=== PATIENT | female | born 1950 | race Caucasian/White ===

== ENCOUNTER 2016-10-01 12:05 | Inpatient (IN) | payer OTHER ==
[~2016-10-01] VITALS: Ht 157.5 cm; Wt 68.0 kg
[2016-10-01 12:09] VITALS: BP_SYST 137
[2016-10-01] MEDS ORDERED: NACL 0.9% 1,000 ML IV SCH (12:35)
[2016-10-01 12:45] LABS: BILIRUBIN,URINE NEGATIVE (NEGATIVE); BLOOD, URINE NEGATIVE (NEGATIVE); CLARITY/URINE CLEAR (CLEAR); COLOR,URINE YELLOW (YELLOW); GLUCOSE,URINE NEGATIVE (NEGATIVE); KETONES,URINE NEGATIVE (NEGATIVE); LEUKOCYTE ESTERASE ,URINE 1+ (NEGATIVE); NITRITE, URINE NEGATIVE (NEGATIVE); PH,URINE 6.5 (5.0-8.0); PROTEIN URINE NEGATIVE (NEGATIVE)
[2016-10-01 13:06] LABS: BACTERIA,URINE FEW /HPF (None Seen); MUCUS,URINE None Seen /LPF (None Seen); RBC,URINE 0-3 /HPF (0-3); WBC,URINE 0-3 /HPF (0-3)
[2016-10-01 13:07] LABS: CALCIUM 8.8 mg/dL (8.4-11.0); CREATININE 0.79 mg/dL (0.55-1.30); POTASSIUM 4.2 mmol/L (3.5-5.1)
[2016-10-01 13:12] LABS: ALBUMIN 3.3 g/dL (3.4-4.8); TOTAL BILIRUBIN 0.5 mg/dL (0.0-1.0); TOTAL PROTEIN, SERUM 6.8 g/dL (6.4-8.3)
[2016-10-01 13:16] LABS: BASOPHILS % (AUTO) 0.7 % (0.0-2.0); EOSINOPHILS # (AUTO) 0.3 K/uL (0.0-0.4); EOSINOPHILS % (AUTO) 4.9 % (0.0-4.0); HEMATOCRIT 42.9 % (36-48); HEMOGLOBIN 14.5 g/dL (12.0-16.0); LYMPHOCYTES # (AUTO) 1.3 K/uL (1.0-5.5); MEAN CORPUSCULAR HEMOGLOBIN 33 pg (27-31); MEAN CORPUSCULAR HGB CONC 34 % (32-36); MEAN CORPUSCULAR VOLUME 97 fL (79.0-98.0); MONOCYTES # (AUTO) 0.5 K/uL (0.0-1.0); MONOCYTES % (AUTO) 9.2 % (1.7-9.3); NEUTROPHILS # (AUTO) 3.1 K/uL (1.8-7.7); NEUTROPHILS % (AUTO) 59.2 % (40.0-70.0); PLATELET COUNT (AUTO) 113 K/uL (130-430); RED BLOOD CELL COUNT(AUTO) 4.42 MIL/uL (4.2-6.2); WHITE BLOOD COUNT (AUTO) 5.2 K/uL (4.8-10.8)
[2016-10-01] MEDS ORDERED: FLEETMO RC (13:19)
[2016-10-01] MEDS ORDERED: DOCU250C71 PO (13:19)
[2016-10-01] MEDS ORDERED: ASA81 PO (13:19)
[2016-10-01] MEDS ORDERED: DULR10 RC (13:19)
[2016-10-01] MEDS ORDERED: LAMO200T2 PO (13:19)
[2016-10-01] MEDS ORDERED: ACET325T53 PO (13:19)
[2016-10-01] MEDS ORDERED: CARV3.1246 PO (13:19)
[2016-10-01] MEDS ORDERED: CEL20 PO (13:19)
[2016-10-01] MEDS ORDERED: BUSP10TA3 PO (13:19)
[2016-10-01] MEDS ORDERED: LORA-259 PO (13:19)
[2016-10-01] MEDS ORDERED: BENA1TAB17 PO (13:19)
[2016-10-01 13:48] LABS: ABG TOTAL HEMOGLOBIN 15.1 G/dL (12.0-18.0); BLOOD GAS BASE EXCESS 3.8 mmol/L (-3.0-3.0); BLOOD GAS COHb% 6.3 % (0.5-1.5)
[2016-10-01] MEDS ORDERED: IPRATROPIUM/ALBUTEROL SULFATE 3 ML AMPUL.NEB INH ONE (14:00)
[2016-10-01] MEDS ORDERED: ACETAMINOPHEN 325 MG TABLET PO PRN (14:15)
[2016-10-01] MEDS ORDERED: POTASSIUM CHLORIDE 20 MEQ TAB.PRT.SR PO PRN (14:15)
[2016-10-01] MEDS ORDERED: BISACODYL 10 MG/SUPPOSITORY RC PRN (14:15)
[2016-10-01] MEDS ORDERED: SIMETHICONE 80 MG TAB.CHEW PO PRN (14:15)
[2016-10-01] MEDS ORDERED: MORPHINE 2 MG/ML INJ. SYRINGE IVP PRN (14:15)
[2016-10-01] MEDS ORDERED: HYDROcodone/ACETAMIN 10-325 MG TAB PO PRN ×2 (14:15→17:00)
[2016-10-01] MEDS ORDERED: IPRATROPIUM/ALBUTEROL SULFATE 3 ML AMPUL.NEB INH SCH (14:15)
[2016-10-01] MEDS ORDERED: ZOLPIDEM TARTRATE 5 MG TABLET PO PRN (14:15)
[2016-10-01] MEDS ORDERED: MINERAL OIL 133 ML ENEMA RC PRN (14:30)
[2016-10-01 14:38] VITALS: BP_SYST 137
[2016-10-01 15:50] VITALS: BP_SYST 137
[2016-10-01] MEDS: busPIRone HCL 5 MG TABLET PO SCH ×2 (15:55→21:04)
[2016-10-01] MEDS ORDERED: LEVOFLOXACIN 500 MG/D5W 100 ML IV ONE (16:15)
[2016-10-01] MEDS: ENOXAPARIN SODIUM 40 MG/0.4 ML SYRINGE SUBCUT ONE ×2 (16:15→17:29)
[2016-10-01 16:29] VITALS: BP_SYST 134
[2016-10-01] MEDS: NACL 0.9% 1,000 ML IV SCH (17:06)
[2016-10-01 17:07] LABS: FREE T4 (FREE THYROXINE) 0.7 ng/dL (0.6-1.6); PHOSPHORUS 3.6 mg/dL (2.7-4.5); THYROID STIMULATING HORMONE 0.96 uIu/mL (0.34-4.82)
[2016-10-01 20:11] VITALS: BP_SYST 124
[2016-10-01] MEDS: BUDESONIDE 0.5 MG/2 ML AMPUL.NEB INH SCH (20:19)
[2016-10-01] MEDS: IPRATROPIUM/ALBUTEROL SULFATE 3 ML AMPUL.NEB INH SCH ×3 (20:19→23:21)
[2016-10-01] MEDS: SACCHAROMYCES BOULARDII 250 MG CAPSULE (FLORASTOR) PO SCH (21:00)
[2016-10-01] MEDS: methylPREDNISolone SOD SUCC/PF 62.5 MG/ML VIAL IVP SCH (21:03)
[2016-10-01] MEDS: QUEtiapine FUMARATE 100 MG TABLET PO SCH (21:04)
[2016-10-01] MEDS: LamoTRIgine 100 MG TABLET PO SCH (21:04)
[2016-10-01] MEDS: DOCUSATE SODIUM 100 MG CAPSULE PO SCH (21:04)
[2016-10-01] MEDS: CARVEDILOL 3.125 MG TABLET (COREG) PO SCH (21:05)
[2016-10-01] MEDS: LORazepam 1 MG TABLET PO SCH (21:06)
[2016-10-02 00:41] VITALS: BP_SYST 122
[2016-10-02] MEDS: HYDROcodone/ACETAMIN 10-325 MG TAB PO PRN ×3 (03:09→21:54)
[2016-10-02] MEDS: IPRATROPIUM/ALBUTEROL SULFATE 3 ML AMPUL.NEB INH SCH ×6 (03:21→23:48)
[2016-10-02] MEDS: NACL 0.9% 1,000 ML IV SCH (06:02)
[2016-10-02] MEDS: methylPREDNISolone SOD SUCC/PF 62.5 MG/ML VIAL IVP SCH ×3 (06:03→21:52)
[2016-10-02] MEDS: LEVOTHYROXINE SODIUM 0.05 MG TABLET PO SCH (06:04)
[2016-10-02 06:59] LABS: CHOLESTEROL 141 mg/dL (<200); HDL CHOLESTEROL 79 mg/dL (>55); LDL CHOLESTEROL 54 mg/dL (<100); TRIGLYCERIDES 40 mg/dL (30-150)
[2016-10-02] MEDS: BUDESONIDE 0.5 MG/2 ML AMPUL.NEB INH SCH ×2 (07:06→20:11)
[2016-10-02 07:33] LABS: HEMOGLOBIN A1C 5.2 % (4.8-5.6)
[2016-10-02 08:19] VITALS: BP_SYST 151
[2016-10-02] MEDS ORDERED: HCTZ PO SCH (09:00)
[2016-10-02] MEDS: SACCHAROMYCES BOULARDII 250 MG CAPSULE (FLORASTOR) PO SCH (09:00)
[2016-10-02] MEDS ORDERED: BENAZEPRIL PO SCH (09:00)
[2016-10-02] MEDS: ENOXAPARIN SODIUM 40 MG/0.4 ML SYRINGE SUBCUT SCH (09:00)
[2016-10-02] MEDS: busPIRone HCL 5 MG TABLET PO SCH ×3 (09:34→21:52)
[2016-10-02] MEDS: HYDROCHLOROTHIAZIDE 12.5 MG CAPSULE (HCTZ) PO SCH (09:35)
[2016-10-02] MEDS: ASPIRIN 81 MG TAB.CHEW PO SCH (09:35)
[2016-10-02] MEDS: CITALOPRAM HYDROBROMIDE 20 MG TABLET PO SCH (09:35)
[2016-10-02] MEDS: CARVEDILOL 3.125 MG TABLET (COREG) PO SCH ×2 (09:36→21:53)
[2016-10-02] MEDS: BENAZEPRIL HCL 10 MG TABLET (LOTENSIN) PO SCH (09:38)
[2016-10-02] MEDS: LORazepam 1 MG TABLET PO SCH ×2 (09:53→21:52)
[2016-10-02] MEDS: LamoTRIgine 100 MG TABLET PO SCH ×2 (09:53→21:52)
[2016-10-02] MEDS: DOCUSATE SODIUM 100 MG CAPSULE PO SCH ×2 (09:53→21:52)
[2016-10-02] MEDS: LEVOFLOXACIN 500 MG/D5W 100 ML IV SCH (09:54)
[2016-10-02 12:22] VITALS: BP_SYST 145
[2016-10-02] MEDS: LORazepam 2 MG/ML VIAL IVP PRN (13:21)
[2016-10-02 16:12] VITALS: BP_SYST 140
[2016-10-02 17:02] LABS: T4 (THYROXINE) 6.2 ug/dL (4.5-12.0)
[2016-10-02 20:00] VITALS: BP_SYST 151
[2016-10-02] MEDS: QUEtiapine FUMARATE 100 MG TABLET PO SCH (21:52)
[2016-10-02] MEDS: LACTOBACILLUS RHAMNOSUS GG 1 CAP CAPSULE PO SCH (21:53)
[2016-10-02 23:25] VITALS: BP_SYST 136
[2016-10-03] MEDS: NACL 0.9% 1,000 ML IV SCH (00:20)
[2016-10-03] MEDS: IPRATROPIUM/ALBUTEROL SULFATE 3 ML AMPUL.NEB INH SCH ×6 (02:08→22:15)
[2016-10-03] MEDS: HYDROcodone/ACETAMIN 10-325 MG TAB PO PRN ×3 (03:42→13:34)
[2016-10-03] MEDS: LORazepam 2 MG/ML VIAL IVP PRN (03:42)
[2016-10-03 04:08] VITALS: BP_SYST 125
[2016-10-03] MEDS: methylPREDNISolone SOD SUCC/PF 62.5 MG/ML VIAL IVP SCH ×3 (06:08→22:14)
[2016-10-03] MEDS: LEVOTHYROXINE SODIUM 0.05 MG TABLET PO SCH (06:08)
[2016-10-03 06:32] LABS: MONOCYTES # (AUTO) 0.2 K/uL (0.0-1.0)
[2016-10-03 06:51] LABS: CALCIUM 8.2 mg/dL (8.4-11.0); CREATININE 0.76 mg/dL (0.55-1.30); POTASSIUM 3.3 mmol/L (3.5-5.1)
[2016-10-03 06:52] LABS: PHOSPHORUS 3.2 mg/dL (2.7-4.5)
[2016-10-03 06:55] LABS: EOSINOPHILS % (AUTO) 0.1 % (0.0-4.0); HEMATOCRIT 38.5 % (36-48); LYMPHOCYTES # (AUTO) 0.5 K/uL (1.0-5.5); MEAN CORPUSCULAR HEMOGLOBIN 33 pg (27-31); MEAN CORPUSCULAR HGB CONC 34 % (32-36); MEAN CORPUSCULAR VOLUME 98 fL (79.0-98.0); MONOCYTES % (AUTO) 3.5 % (1.7-9.3); NEUTROPHILS # (AUTO) 6.2 K/uL (1.8-7.7); NEUTROPHILS % (AUTO) 89.4 % (40.0-70.0); PLATELET COUNT (AUTO) 78 K/uL (130-430); RED BLOOD CELL COUNT(AUTO) 3.93 MIL/uL (4.2-6.2); RED CELL DISTRIBUTION WIDTH 12.8 % (9.0-15.0); WHITE BLOOD COUNT (AUTO) 6.9 K/uL (4.8-10.8)
[2016-10-03] MEDS: BUDESONIDE 0.5 MG/2 ML AMPUL.NEB INH SCH ×2 (07:48→19:59)
[2016-10-03 07:53] VITALS: BP_SYST 129
[2016-10-03] MEDS: ASPIRIN 81 MG TAB.CHEW PO SCH (09:00)
[2016-10-03] MEDS: LamoTRIgine 100 MG TABLET PO SCH ×2 (09:20→20:36)
[2016-10-03] MEDS: busPIRone HCL 5 MG TABLET PO SCH ×3 (09:20→20:36)
[2016-10-03] MEDS: DOCUSATE SODIUM 100 MG CAPSULE PO SCH ×2 (09:21→20:35)
[2016-10-03] MEDS: LACTOBACILLUS RHAMNOSUS GG 1 CAP CAPSULE PO SCH ×2 (09:21→20:36)
[2016-10-03] MEDS: CITALOPRAM HYDROBROMIDE 20 MG TABLET PO SCH (09:22)
[2016-10-03] MEDS: LORazepam 1 MG TABLET PO SCH ×2 (09:22→20:36)
[2016-10-03] MEDS: HYDROCHLOROTHIAZIDE 12.5 MG CAPSULE (HCTZ) PO SCH (09:23)
[2016-10-03] MEDS: CARVEDILOL 3.125 MG TABLET (COREG) PO SCH ×2 (09:23→20:37)
[2016-10-03] MEDS: BENAZEPRIL HCL 10 MG TABLET (LOTENSIN) PO SCH (09:23)
[2016-10-03] MEDS: ENOXAPARIN SODIUM 40 MG/0.4 ML SYRINGE SUBCUT SCH (09:23)
[2016-10-03] MEDS: LEVOFLOXACIN 500 MG/D5W 100 ML IV SCH (09:24)
[2016-10-03 11:04] LABS: BLOOD GAS PH 7.429 (7.350-7.450)
[2016-10-03 11:05] LABS: BLOOD GAS BASE EXCESS 0.6 mmol/L (-3.0-3.0)
[2016-10-03 11:06] LABS: ABG TOTAL HEMOGLOBIN 14.1 G/dL (12.0-18.0); BLOOD GAS COHb% 0.6 % (0.5-1.5); BLOOD GAS HHB 12.1 % (0.0-6.0); BLOOD O2Hb% 87.2 % (94.0-97.0)
[2016-10-03 12:40] VITALS: BP_SYST 138
[2016-10-03] MEDS: BENZONATATE 100 MG CAPSULE (TESSALON) PO SCH ×2 (15:56→20:36)
[2016-10-03 16:31] VITALS: BP_SYST 139
[2016-10-03 20:00] VITALS: BP_SYST 146
[2016-10-03] MEDS: QUEtiapine FUMARATE 100 MG TABLET PO SCH (20:37)
[2016-10-04] VITALS (7 sets, daily range): BP systolic 118–142
[2016-10-04] MEDS: HYDROcodone/ACETAMIN 10-325 MG TAB PO PRN ×4 (01:50→21:15)
[2016-10-04] MEDS: LORazepam 2 MG/ML VIAL IVP PRN ×2 (01:51→18:11)
[2016-10-04] MEDS: IPRATROPIUM/ALBUTEROL SULFATE 3 ML AMPUL.NEB INH SCH ×6 (02:15→22:43)
[2016-10-04] MEDS: LEVOTHYROXINE SODIUM 0.05 MG TABLET PO SCH (06:23)
[2016-10-04] MEDS: methylPREDNISolone SOD SUCC/PF 62.5 MG/ML VIAL IVP SCH (06:24)
[2016-10-04 06:55] LABS: CALCIUM 8.2 mg/dL (8.4-11.0); CREATININE 0.85 mg/dL (0.55-1.30); PHOSPHORUS 2.7 mg/dL (2.7-4.5); POTASSIUM 3.6 mmol/L (3.5-5.1)
[2016-10-04 07:16] LABS: BASOPHILS % (AUTO) 0.1 % (0.0-2.0); EOSINOPHILS % (AUTO) 0.1 % (0.0-4.0); HEMATOCRIT 39.7 % (36-48); HEMOGLOBIN 13.5 g/dL (12.0-16.0); LYMPHOCYTES # (AUTO) 0.5 K/uL (1.0-5.5); LYMPHOCYTES % (AUTO) 6.3 % (20.5-51.5); MEAN CORPUSCULAR HEMOGLOBIN 33 pg (27-31); MEAN CORPUSCULAR HGB CONC 34 % (32-36); MEAN CORPUSCULAR VOLUME 98 fL (79.0-98.0); MONOCYTES # (AUTO) 0.4 K/uL (0.0-1.0); MONOCYTES % (AUTO) 5.3 % (1.7-9.3); NEUTROPHILS # (AUTO) 6.8 K/uL (1.8-7.7); NEUTROPHILS % (AUTO) 88.2 % (40.0-70.0); RED BLOOD CELL COUNT(AUTO) 4.06 MIL/uL (4.2-6.2); RED CELL DISTRIBUTION WIDTH 12.8 % (9.0-15.0); WHITE BLOOD COUNT (AUTO) 7.7 K/uL (4.8-10.8)
[2016-10-04] MEDS: BUDESONIDE 0.5 MG/2 ML AMPUL.NEB INH SCH ×2 (07:20→19:35)
[2016-10-04 08:23] LABS: PLATELET COUNT (AUTO) 87 K/uL (130-430)
[2016-10-04] MEDS: ASPIRIN 81 MG TAB.CHEW PO SCH (09:00)
[2016-10-04] MEDS: LACTOBACILLUS RHAMNOSUS GG 1 CAP CAPSULE PO SCH ×2 (09:16→21:14)
[2016-10-04] MEDS: BENZONATATE 100 MG CAPSULE (TESSALON) PO SCH ×3 (09:16→21:17)
[2016-10-04] MEDS: DOCUSATE SODIUM 100 MG CAPSULE PO SCH ×2 (09:16→21:16)
[2016-10-04] MEDS: CITALOPRAM HYDROBROMIDE 20 MG TABLET PO SCH (09:16)
[2016-10-04] MEDS: LORazepam 1 MG TABLET PO SCH ×2 (09:16→21:16)
[2016-10-04] MEDS: busPIRone HCL 5 MG TABLET PO SCH ×3 (09:16→21:17)
[2016-10-04] MEDS: CARVEDILOL 3.125 MG TABLET (COREG) PO SCH ×2 (09:17→21:16)
[2016-10-04] MEDS: HYDROCHLOROTHIAZIDE 12.5 MG CAPSULE (HCTZ) PO SCH (09:18)
[2016-10-04] MEDS: LamoTRIgine 100 MG TABLET PO SCH ×2 (09:18→21:16)
[2016-10-04] MEDS: BENAZEPRIL HCL 10 MG TABLET (LOTENSIN) PO SCH (09:18)
[2016-10-04] MEDS: ENOXAPARIN SODIUM 40 MG/0.4 ML SYRINGE SUBCUT SCH (09:18)
[2016-10-04] MEDS: LEVOFLOXACIN 500 MG/D5W 100 ML IV SCH (09:25)
[2016-10-04 13:16] LABS: BLOOD O2Hb% 84.6 % (94.0-97.0)
[2016-10-04] MEDS: QUEtiapine FUMARATE 100 MG TABLET PO SCH (21:14)
[2016-10-04] MEDS: PREDNISONE 20 MG TABLET PO SCH (21:16)
[2016-10-05] VITALS (7 sets, daily range): BP systolic 106–144
[2016-10-05] MEDS: IPRATROPIUM/ALBUTEROL SULFATE 3 ML AMPUL.NEB INH SCH ×6 (02:24→20:38)
[2016-10-05] MEDS: LEVOTHYROXINE SODIUM 0.05 MG TABLET PO SCH (05:59)
[2016-10-05] MEDS: HYDROcodone/ACETAMIN 10-325 MG TAB PO PRN ×4 (06:09→20:51)
[2016-10-05 07:01] LABS: EOSINOPHILS % (AUTO) 0.6 % (0.0-4.0); HEMATOCRIT 40.4 % (36-48); HEMOGLOBIN 13.4 g/dL (12.0-16.0); LYMPHOCYTES # (AUTO) 0.6 K/uL (1.0-5.5); LYMPHOCYTES % (AUTO) 10.9 % (20.5-51.5); MEAN CORPUSCULAR HEMOGLOBIN 33 pg (27-31); MEAN CORPUSCULAR HGB CONC 33 % (32-36); MEAN CORPUSCULAR VOLUME 99 fL (79.0-98.0); MONOCYTES # (AUTO) 0.5 K/uL (0.0-1.0); MONOCYTES % (AUTO) 9.8 % (1.7-9.3); NEUTROPHILS # (AUTO) 4.3 K/uL (1.8-7.7); NEUTROPHILS % (AUTO) 78.7 % (40.0-70.0); PLATELET COUNT (AUTO) 74 K/uL (130-430); RED BLOOD CELL COUNT(AUTO) 4.08 MIL/uL (4.2-6.2); RED CELL DISTRIBUTION WIDTH 13.3 % (9.0-15.0); WHITE BLOOD COUNT (AUTO) 5.4 K/uL (4.8-10.8)
[2016-10-05 07:03] LABS: CALCIUM 8.2 mg/dL (8.4-11.0); CREATININE 0.83 mg/dL (0.55-1.30); PHOSPHORUS 3.5 mg/dL (2.7-4.5); POTASSIUM 3.8 mmol/L (3.5-5.1)
[2016-10-05] MEDS: BUDESONIDE 0.5 MG/2 ML AMPUL.NEB INH SCH ×2 (08:24→19:59)
[2016-10-05] MEDS ORDERED: BUDE180A3 IH (08:58)
[2016-10-05] MEDS ORDERED: IPRA3AMP9 INH (08:58)
[2016-10-05] MEDS: ASPIRIN 81 MG TAB.CHEW PO SCH (09:00)
[2016-10-05] MEDS ORDERED: LEVO750T19 PO (09:01)
[2016-10-05] MEDS: LEVOFLOXACIN 500 MG/D5W 100 ML IV SCH (09:37)
[2016-10-05] MEDS: LACTOBACILLUS RHAMNOSUS GG 1 CAP CAPSULE PO SCH ×2 (09:58→20:50)
[2016-10-05] MEDS: busPIRone HCL 5 MG TABLET PO SCH ×3 (09:58→20:50)
[2016-10-05] MEDS: ENOXAPARIN SODIUM 40 MG/0.4 ML SYRINGE SUBCUT SCH (09:58)
[2016-10-05] MEDS: BENZONATATE 100 MG CAPSULE (TESSALON) PO SCH ×3 (09:59→20:56)
[2016-10-05] MEDS: LORazepam 1 MG TABLET PO SCH ×2 (09:59→20:50)
[2016-10-05] MEDS: CITALOPRAM HYDROBROMIDE 20 MG TABLET PO SCH (09:59)
[2016-10-05] MEDS: DOCUSATE SODIUM 100 MG CAPSULE PO SCH ×2 (09:59→20:50)
[2016-10-05] MEDS: CARVEDILOL 3.125 MG TABLET (COREG) PO SCH ×2 (09:59→20:50)
[2016-10-05] MEDS: PREDNISONE 20 MG TABLET PO SCH ×2 (09:59→20:50)
[2016-10-05] MEDS: LamoTRIgine 100 MG TABLET PO SCH ×2 (10:00→20:51)
[2016-10-05] MEDS: HYDROCHLOROTHIAZIDE 12.5 MG CAPSULE (HCTZ) PO SCH (10:00)
[2016-10-05] MEDS: BENAZEPRIL HCL 10 MG TABLET (LOTENSIN) PO SCH (10:00)
[2016-10-05] MEDS: guaiFENesin ER 600 MG TAB PO SCH (20:50)
[2016-10-05] MEDS: QUEtiapine FUMARATE 100 MG TABLET PO SCH (20:52)
[2016-10-06] MEDS: HYDROcodone/ACETAMIN 10-325 MG TAB PO PRN ×2 (03:15→19:27)
[2016-10-06 03:36] VITALS: BP_SYST 137
[2016-10-06] MEDS: IPRATROPIUM/ALBUTEROL SULFATE 3 ML AMPUL.NEB INH SCH ×6 (03:56→23:27)
[2016-10-06] MEDS: LORazepam 2 MG/ML VIAL IVP PRN ×2 (05:48→15:06)
[2016-10-06] MEDS: LEVOTHYROXINE SODIUM 0.05 MG TABLET PO SCH (06:17)
[2016-10-06 06:51] LABS: EOSINOPHILS # (AUTO) 0.1 K/uL (0.0-0.4); EOSINOPHILS % (AUTO) 1.1 % (0.0-4.0); HEMATOCRIT 37.7 % (36-48); HEMOGLOBIN 12.7 g/dL (12.0-16.0); LYMPHOCYTES # (AUTO) 0.6 K/uL (1.0-5.5); MEAN CORPUSCULAR HEMOGLOBIN 33 pg (27-31); MEAN CORPUSCULAR HGB CONC 34 % (32-36); MEAN CORPUSCULAR VOLUME 98 fL (79.0-98.0); MONOCYTES # (AUTO) 0.6 K/uL (0.0-1.0); NEUTROPHILS % (AUTO) 79.9 % (40.0-70.0); RED BLOOD CELL COUNT(AUTO) 3.83 MIL/uL (4.2-6.2); WHITE BLOOD COUNT (AUTO) 6.3 K/uL (4.8-10.8)
[2016-10-06 07:08] LABS: CREATININE 0.74 mg/dL (0.55-1.30); PHOSPHORUS 2.9 mg/dL (2.7-4.5); POTASSIUM 3.6 mmol/L (3.5-5.1)
[2016-10-06] MEDS: BUDESONIDE 0.5 MG/2 ML AMPUL.NEB INH SCH ×2 (07:29→20:22)
[2016-10-06 08:00] VITALS: BP_SYST 133
[2016-10-06 08:21] LABS: PLATELET COUNT (AUTO) 79 K/uL (130-430)
[2016-10-06] MEDS: LEVOFLOXACIN 500 MG/D5W 100 ML IV SCH (09:08)
[2016-10-06] MEDS: ASPIRIN 81 MG TAB.CHEW PO SCH (09:18)
[2016-10-06] MEDS: LORazepam 1 MG TABLET PO SCH ×2 (09:18→21:28)
[2016-10-06] MEDS: DOCUSATE SODIUM 100 MG CAPSULE PO SCH ×2 (09:19→21:28)
[2016-10-06] MEDS: CITALOPRAM HYDROBROMIDE 20 MG TABLET PO SCH (09:19)
[2016-10-06] MEDS: busPIRone HCL 5 MG TABLET PO SCH ×3 (09:19→21:27)
[2016-10-06] MEDS: CARVEDILOL 3.125 MG TABLET (COREG) PO SCH ×2 (09:20→21:27)
[2016-10-06] MEDS: LACTOBACILLUS RHAMNOSUS GG 1 CAP CAPSULE PO SCH ×2 (09:20→21:28)
[2016-10-06] MEDS: HYDROCHLOROTHIAZIDE 12.5 MG CAPSULE (HCTZ) PO SCH (09:21)
[2016-10-06] MEDS: BENAZEPRIL HCL 10 MG TABLET (LOTENSIN) PO SCH (09:22)
[2016-10-06] MEDS: LamoTRIgine 100 MG TABLET PO SCH ×2 (09:23→21:29)
[2016-10-06] MEDS: PREDNISONE 20 MG TABLET PO SCH ×2 (09:24→21:28)
[2016-10-06] MEDS: BENZONATATE 100 MG CAPSULE (TESSALON) PO SCH ×3 (09:24→21:37)
[2016-10-06] MEDS: ENOXAPARIN SODIUM 40 MG/0.4 ML SYRINGE SUBCUT SCH (09:29)
[2016-10-06] MEDS: guaiFENesin ER 600 MG TAB PO SCH ×2 (09:40→21:28)
[2016-10-06 12:12] VITALS: BP_SYST 124
[2016-10-06 16:00] VITALS: BP_SYST 115
[2016-10-06] MEDS: QUEtiapine FUMARATE 100 MG TABLET PO SCH (21:00)
[2016-10-06 21:21] VITALS: BP_SYST 146
[2016-10-06 23:58] VITALS: BP_SYST 136
[2016-10-07] MEDS: IPRATROPIUM/ALBUTEROL SULFATE 3 ML AMPUL.NEB INH SCH ×6 (03:27→23:08)
[2016-10-07] MEDS: LORazepam 2 MG/ML VIAL IVP PRN ×3 (03:41→22:45)
[2016-10-07] MEDS: HYDROcodone/ACETAMIN 10-325 MG TAB PO PRN ×4 (05:23→20:19)
[2016-10-07 06:14] VITALS: BP_SYST 134
[2016-10-07] MEDS: LEVOTHYROXINE SODIUM 0.05 MG TABLET PO SCH (06:16)
[2016-10-07] MEDS: BUDESONIDE 0.5 MG/2 ML AMPUL.NEB INH SCH ×2 (07:57→20:00)
[2016-10-07 08:00] VITALS: BP_SYST 144
[2016-10-07] MEDS: LEVOFLOXACIN 500 MG/D5W 100 ML IV SCH (08:58)
[2016-10-07] MEDS: ENOXAPARIN SODIUM 40 MG/0.4 ML SYRINGE SUBCUT SCH ×2 (08:58→09:00)
[2016-10-07] MEDS: BENZONATATE 100 MG CAPSULE (TESSALON) PO SCH ×3 (08:59→20:19)
[2016-10-07] MEDS: CARVEDILOL 3.125 MG TABLET (COREG) PO SCH ×2 (08:59→20:20)
[2016-10-07] MEDS: LORazepam 1 MG TABLET PO SCH ×2 (09:00→20:20)
[2016-10-07] MEDS: ASPIRIN 81 MG TAB.CHEW PO SCH (09:00)
[2016-10-07] MEDS: guaiFENesin ER 600 MG TAB PO SCH ×2 (09:01→20:18)
[2016-10-07] MEDS: CITALOPRAM HYDROBROMIDE 20 MG TABLET PO SCH (09:01)
[2016-10-07] MEDS: DOCUSATE SODIUM 100 MG CAPSULE PO SCH ×2 (09:01→20:19)
[2016-10-07] MEDS: busPIRone HCL 5 MG TABLET PO SCH ×3 (09:02→20:18)
[2016-10-07] MEDS: BENAZEPRIL HCL 10 MG TABLET (LOTENSIN) PO SCH (09:02)
[2016-10-07] MEDS: LamoTRIgine 100 MG TABLET PO SCH ×2 (09:04→20:20)
[2016-10-07] MEDS: HYDROCHLOROTHIAZIDE 12.5 MG CAPSULE (HCTZ) PO SCH (09:04)
[2016-10-07] MEDS: LACTOBACILLUS RHAMNOSUS GG 1 CAP CAPSULE PO SCH ×2 (09:05→20:18)
[2016-10-07] MEDS: PREDNISONE 20 MG TABLET PO SCH (09:05)
[2016-10-07 09:59] VITALS: BP_SYST 144
[2016-10-07 12:00] VITALS: BP_SYST 135
[2016-10-07 16:03] VITALS: BP_SYST 139
[2016-10-07 20:15] VITALS: BP_SYST 121
[2016-10-07] MEDS: PREDNISONE 10 MG TABLET PO SCH (20:20)
[2016-10-07] MEDS: QUEtiapine FUMARATE 100 MG TABLET PO SCH (20:21)
[2016-10-07] MEDS: MORPHINE 4 MG/ML INJ. SYRINGE IVP PRN (23:26)
[2016-10-08 00:37] VITALS: BP_SYST 136
[2016-10-08] MEDS: IPRATROPIUM/ALBUTEROL SULFATE 3 ML AMPUL.NEB INH SCH ×6 (03:20→23:32)
[2016-10-08 04:00] VITALS: BP_SYST 137
[2016-10-08] MEDS: MORPHINE 4 MG/ML INJ. SYRINGE IVP PRN ×2 (05:34→14:26)
[2016-10-08] MEDS: LEVOTHYROXINE SODIUM 0.05 MG TABLET PO SCH (06:38)
[2016-10-08] MEDS: BUDESONIDE 0.5 MG/2 ML AMPUL.NEB INH SCH ×2 (07:00→19:47)
[2016-10-08] MEDS: LORazepam 1 MG TABLET PO SCH ×2 (09:00→21:00)
[2016-10-08] MEDS: ASPIRIN 81 MG TAB.CHEW PO SCH (09:00)
[2016-10-08 10:34] VITALS: BP_SYST 135
[2016-10-08] MEDS: CARVEDILOL 3.125 MG TABLET (COREG) PO SCH ×2 (10:37→21:28)
[2016-10-08] MEDS: HYDROCHLOROTHIAZIDE 12.5 MG CAPSULE (HCTZ) PO SCH (10:38)
[2016-10-08] MEDS: BENAZEPRIL HCL 10 MG TABLET (LOTENSIN) PO SCH (10:38)
[2016-10-08] MEDS: LACTOBACILLUS RHAMNOSUS GG 1 CAP CAPSULE PO SCH ×2 (10:38→21:29)
[2016-10-08] MEDS: CITALOPRAM HYDROBROMIDE 20 MG TABLET PO SCH (10:39)
[2016-10-08] MEDS: LamoTRIgine 100 MG TABLET PO SCH ×2 (10:39→21:27)
[2016-10-08] MEDS: guaiFENesin ER 600 MG TAB PO SCH ×2 (10:39→21:27)
[2016-10-08] MEDS: DOCUSATE SODIUM 100 MG CAPSULE PO SCH ×2 (10:39→21:28)
[2016-10-08] MEDS: busPIRone HCL 5 MG TABLET PO SCH ×3 (10:39→21:28)
[2016-10-08] MEDS: LEVOFLOXACIN 500 MG/D5W 100 ML IV SCH (10:40)
[2016-10-08] MEDS: ENOXAPARIN SODIUM 40 MG/0.4 ML SYRINGE SUBCUT SCH (10:40)
[2016-10-08] MEDS: BENZONATATE 100 MG CAPSULE (TESSALON) PO SCH ×3 (10:50→21:31)
[2016-10-08] MEDS: PREDNISONE 10 MG TABLET PO SCH ×2 (10:50→21:28)
[2016-10-08] MEDS: LORazepam 2 MG/ML VIAL IVP PRN ×2 (10:51→19:31)
[2016-10-08 13:51] VITALS: BP_SYST 131
[2016-10-08 18:53] VITALS: BP_SYST 153
[2016-10-08 20:10] VITALS: BP_SYST 138
[2016-10-08] MEDS: QUEtiapine FUMARATE 100 MG TABLET PO SCH (21:00)
[2016-10-08] MEDS: HYDROcodone/ACETAMIN 10-325 MG TAB PO PRN (21:32)
[2016-10-09 00:31] VITALS: BP_SYST 142
[2016-10-09] MEDS: LORazepam 2 MG/ML VIAL IVP PRN ×3 (01:45→21:35)
[2016-10-09] MEDS: HYDROcodone/ACETAMIN 10-325 MG TAB PO PRN ×3 (03:19→16:32)
[2016-10-09] MEDS: IPRATROPIUM/ALBUTEROL SULFATE 3 ML AMPUL.NEB INH SCH ×7 (03:46→23:06)
[2016-10-09 04:50] VITALS: BP_SYST 127
[2016-10-09] MEDS: LEVOTHYROXINE SODIUM 0.05 MG TABLET PO SCH (07:25)
[2016-10-09 08:00] VITALS: BP_SYST 141
[2016-10-09] MEDS: LORazepam 1 MG TABLET PO SCH ×2 (08:42→21:00)
[2016-10-09] MEDS: BUDESONIDE 0.5 MG/2 ML AMPUL.NEB INH SCH ×2 (09:16→19:35)
[2016-10-09] MEDS: CITALOPRAM HYDROBROMIDE 20 MG TABLET PO SCH (09:30)
[2016-10-09] MEDS: HYDROCHLOROTHIAZIDE 12.5 MG CAPSULE (HCTZ) PO SCH (09:30)
[2016-10-09] MEDS: ENOXAPARIN SODIUM 40 MG/0.4 ML SYRINGE SUBCUT SCH (09:30)
[2016-10-09] MEDS: LACTOBACILLUS RHAMNOSUS GG 1 CAP CAPSULE PO SCH ×2 (09:31→21:23)
[2016-10-09] MEDS: PREDNISONE 10 MG TABLET PO SCH ×2 (09:31→21:24)
[2016-10-09] MEDS: BENAZEPRIL HCL 10 MG TABLET (LOTENSIN) PO SCH (09:31)
[2016-10-09] MEDS: DOCUSATE SODIUM 100 MG CAPSULE PO SCH ×2 (09:31→21:23)
[2016-10-09] MEDS: guaiFENesin ER 600 MG TAB PO SCH ×2 (09:31→21:22)
[2016-10-09] MEDS: busPIRone HCL 5 MG TABLET PO SCH ×3 (09:32→21:24)
[2016-10-09] MEDS: CARVEDILOL 3.125 MG TABLET (COREG) PO SCH ×2 (09:32→21:25)
[2016-10-09] MEDS: ASPIRIN 81 MG TAB.CHEW PO SCH (09:32)
[2016-10-09] MEDS: LamoTRIgine 100 MG TABLET PO SCH ×2 (09:34→21:24)
[2016-10-09] MEDS: BENZONATATE 100 MG CAPSULE (TESSALON) PO SCH ×3 (09:35→21:23)
[2016-10-09 12:32] VITALS: BP_SYST 128
[2016-10-09 16:40] VITALS: BP_SYST 145
[2016-10-09 20:00] VITALS: BP_SYST 112
[2016-10-09] MEDS: QUEtiapine FUMARATE 100 MG TABLET PO SCH (21:00)
[2016-10-10] VITALS (7 sets, daily range): BP systolic 104–158
[2016-10-10] MEDS: IPRATROPIUM/ALBUTEROL SULFATE 3 ML AMPUL.NEB INH SCH ×6 (02:18→22:03)
[2016-10-10] MEDS: LORazepam 2 MG/ML VIAL IVP PRN ×4 (03:51→21:16)
[2016-10-10] MEDS: LEVOTHYROXINE SODIUM 0.05 MG TABLET PO SCH (07:00)
[2016-10-10] MEDS: BUDESONIDE 0.5 MG/2 ML AMPUL.NEB INH SCH ×2 (07:30→19:00)
[2016-10-10] MEDS: ENOXAPARIN SODIUM 40 MG/0.4 ML SYRINGE SUBCUT SCH (08:27)
[2016-10-10] MEDS: LORazepam 1 MG TABLET PO SCH ×2 (08:28→21:00)
[2016-10-10] MEDS: PREDNISONE 10 MG TABLET PO SCH ×2 (08:28→21:16)
[2016-10-10] MEDS: LACTOBACILLUS RHAMNOSUS GG 1 CAP CAPSULE PO SCH ×2 (08:29→21:17)
[2016-10-10] MEDS: HYDROCHLOROTHIAZIDE 12.5 MG CAPSULE (HCTZ) PO SCH (08:29)
[2016-10-10] MEDS: LamoTRIgine 100 MG TABLET PO SCH ×2 (08:29→21:17)
[2016-10-10] MEDS: busPIRone HCL 5 MG TABLET PO SCH ×3 (08:30→21:17)
[2016-10-10] MEDS: DOCUSATE SODIUM 100 MG CAPSULE PO SCH ×2 (08:31→21:16)
[2016-10-10] MEDS: VALSARTAN 80 MG TABLET (DIOVAN) PO SCH (08:31)
[2016-10-10] MEDS: guaiFENesin ER 600 MG TAB PO SCH ×2 (08:32→21:17)
[2016-10-10] MEDS: CITALOPRAM HYDROBROMIDE 20 MG TABLET PO SCH (08:32)
[2016-10-10] MEDS: CARVEDILOL 3.125 MG TABLET (COREG) PO SCH ×2 (08:32→21:16)
[2016-10-10] MEDS: ASPIRIN 81 MG TAB.CHEW PO SCH (08:33)
[2016-10-10] MEDS: BENZONATATE 100 MG CAPSULE (TESSALON) PO SCH ×3 (08:58→21:19)
[2016-10-10] MEDS: QUEtiapine FUMARATE 100 MG TABLET PO SCH (21:17)
[2016-10-11 00:21] VITALS: BP_SYST 93
[2016-10-11 03:40] VITALS: BP_SYST 127
[2016-10-11] MEDS: IPRATROPIUM/ALBUTEROL SULFATE 3 ML AMPUL.NEB INH SCH ×6 (04:21→23:17)
[2016-10-11] MEDS: LEVOTHYROXINE SODIUM 0.05 MG TABLET PO SCH (06:19)
[2016-10-11] MEDS: MORPHINE 4 MG/ML INJ. SYRINGE IVP PRN (06:20)
[2016-10-11] MEDS: BUDESONIDE 0.5 MG/2 ML AMPUL.NEB INH SCH ×2 (06:50→20:04)
[2016-10-11] MEDS: DOCUSATE SODIUM 100 MG CAPSULE PO SCH ×2 (09:01→21:16)
[2016-10-11] MEDS: busPIRone HCL 5 MG TABLET PO SCH ×3 (09:02→21:17)
[2016-10-11] MEDS: CITALOPRAM HYDROBROMIDE 20 MG TABLET PO SCH (09:02)
[2016-10-11] MEDS: LamoTRIgine 100 MG TABLET PO SCH ×2 (09:02→21:15)
[2016-10-11] MEDS: LACTOBACILLUS RHAMNOSUS GG 1 CAP CAPSULE PO SCH ×2 (09:02→21:15)
[2016-10-11] MEDS: HYDROCHLOROTHIAZIDE 12.5 MG CAPSULE (HCTZ) PO SCH (09:03)
[2016-10-11] MEDS: BENZONATATE 100 MG CAPSULE (TESSALON) PO SCH ×3 (09:03→21:25)
[2016-10-11] MEDS: guaiFENesin ER 600 MG TAB PO SCH ×2 (09:03→21:18)
[2016-10-11] MEDS: ENOXAPARIN SODIUM 40 MG/0.4 ML SYRINGE SUBCUT SCH (09:03)
[2016-10-11] MEDS: LORazepam 1 MG TABLET PO SCH (09:03)
[2016-10-11] MEDS: PREDNISONE 10 MG TABLET PO SCH ×2 (09:04→21:17)
[2016-10-11] MEDS: ASPIRIN 81 MG TAB.CHEW PO SCH (09:04)
[2016-10-11] MEDS: CARVEDILOL 3.125 MG TABLET (COREG) PO SCH ×2 (09:04→21:16)
[2016-10-11] MEDS: VALSARTAN 80 MG TABLET (DIOVAN) PO SCH (09:05)
[2016-10-11 10:44] LABS: BASOPHILS % (AUTO) 0.3 % (0.0-2.0); EOSINOPHILS # (AUTO) 0.1 K/uL (0.0-0.4); EOSINOPHILS % (AUTO) 2.3 % (0.0-4.0); HEMOGLOBIN 14.2 g/dL (12.0-16.0); LYMPHOCYTES # (AUTO) 0.8 K/uL (1.0-5.5); LYMPHOCYTES % (AUTO) 12.2 % (20.5-51.5); MEAN CORPUSCULAR HEMOGLOBIN 32 pg (27-31); MEAN CORPUSCULAR HGB CONC 33 % (32-36); MEAN CORPUSCULAR VOLUME 98 fL (79.0-98.0); MONOCYTES # (AUTO) 0.6 K/uL (0.0-1.0); MONOCYTES % (AUTO) 9.4 % (1.7-9.3); NEUTROPHILS # (AUTO) 4.9 K/uL (1.8-7.7); NEUTROPHILS % (AUTO) 75.8 % (40.0-70.0); PLATELET COUNT (AUTO) 136 K/uL (130-430); RED CELL DISTRIBUTION WIDTH 13.9 % (9.0-15.0)
[2016-10-11 10:47] LABS: WHITE BLOOD COUNT (AUTO) 6.4 K/uL (4.8-10.8)
[2016-10-11 11:23] VITALS: BP_SYST 120
[2016-10-11] MEDS: LORazepam 2 MG/ML VIAL IVP PRN (13:55)
[2016-10-11 15:27] VITALS: BP_SYST 134
[2016-10-11 20:00] VITALS: BP_SYST 146
[2016-10-11] MEDS ORDERED: HYDROcodone/ACETAMIN 10-325 MG TAB PO PRN (21:00)
[2016-10-11] MEDS: MORPHINE 2 MG/ML INJ. SYRINGE IVP PRN (21:15)
[2016-10-11] MEDS: QUEtiapine FUMARATE 100 MG TABLET PO SCH (21:17)
[2016-10-12] VITALS (7 sets, daily range): BP systolic 96–133
[2016-10-12] MEDS: IPRATROPIUM/ALBUTEROL SULFATE 3 ML AMPUL.NEB INH SCH ×6 (02:00→23:13)
[2016-10-12] MEDS: MORPHINE 2 MG/ML INJ. SYRINGE IVP PRN ×4 (02:36→21:20)
[2016-10-12] MEDS: LEVOTHYROXINE SODIUM 0.05 MG TABLET PO SCH (06:29)
[2016-10-12] MEDS: BUDESONIDE 0.5 MG/2 ML AMPUL.NEB INH SCH ×2 (07:00→20:05)
[2016-10-12] MEDS: busPIRone HCL 5 MG TABLET PO SCH ×3 (09:45→21:19)
[2016-10-12] MEDS: PREDNISONE 10 MG TABLET PO SCH ×2 (09:45→21:19)
[2016-10-12] MEDS: DOCUSATE SODIUM 100 MG CAPSULE PO SCH ×2 (09:45→21:18)
[2016-10-12] MEDS: LACTOBACILLUS RHAMNOSUS GG 1 CAP CAPSULE PO SCH ×2 (09:45→21:19)
[2016-10-12] MEDS: BENZONATATE 100 MG CAPSULE (TESSALON) PO SCH ×3 (09:45→21:19)
[2016-10-12] MEDS: CITALOPRAM HYDROBROMIDE 20 MG TABLET PO SCH (09:45)
[2016-10-12] MEDS: guaiFENesin ER 600 MG TAB PO SCH ×2 (09:45→21:19)
[2016-10-12] MEDS: LORazepam 2 MG/ML VIAL IVP PRN (09:46)
[2016-10-12] MEDS: ASPIRIN 81 MG TAB.CHEW PO SCH (09:46)
[2016-10-12] MEDS: LamoTRIgine 100 MG TABLET PO SCH ×2 (09:46→21:19)
[2016-10-12] MEDS: CARVEDILOL 3.125 MG TABLET (COREG) PO SCH ×2 (09:47→21:20)
[2016-10-12] MEDS: HYDROCHLOROTHIAZIDE 12.5 MG CAPSULE (HCTZ) PO SCH (09:47)
[2016-10-12] MEDS: VALSARTAN 80 MG TABLET (DIOVAN) PO SCH (09:48)
[2016-10-12] MEDS: QUEtiapine FUMARATE 100 MG TABLET PO SCH (21:19)
[2016-10-13] MEDS: LORazepam 2 MG/ML VIAL IVP PRN ×4 (00:12→22:53)
[2016-10-13 03:43] VITALS: BP_SYST 126
[2016-10-13] MEDS: IPRATROPIUM/ALBUTEROL SULFATE 3 ML AMPUL.NEB INH SCH ×6 (04:02→23:04)
[2016-10-13] MEDS: LEVOTHYROXINE SODIUM 0.05 MG TABLET PO SCH (06:23)
[2016-10-13] MEDS: MORPHINE 2 MG/ML INJ. SYRINGE IVP PRN ×3 (06:27→20:57)
[2016-10-13] MEDS: BUDESONIDE 0.5 MG/2 ML AMPUL.NEB INH SCH ×2 (07:00→19:55)
[2016-10-13 08:00] VITALS: BP_SYST 133
[2016-10-13] MEDS: guaiFENesin ER 600 MG TAB PO SCH ×2 (09:00→20:59)
[2016-10-13] MEDS: HYDROCHLOROTHIAZIDE 12.5 MG CAPSULE (HCTZ) PO SCH (09:32)
[2016-10-13] MEDS: busPIRone HCL 5 MG TABLET PO SCH ×3 (09:33→20:58)
[2016-10-13] MEDS: CITALOPRAM HYDROBROMIDE 20 MG TABLET PO SCH (09:33)
[2016-10-13] MEDS: PREDNISONE 10 MG TABLET PO SCH ×2 (09:34→20:58)
[2016-10-13] MEDS: CARVEDILOL 3.125 MG TABLET (COREG) PO SCH ×2 (09:34→20:59)
[2016-10-13] MEDS: VALSARTAN 80 MG TABLET (DIOVAN) PO SCH (09:35)
[2016-10-13] MEDS: ASPIRIN 81 MG TAB.CHEW PO SCH (09:35)
[2016-10-13] MEDS: LACTOBACILLUS RHAMNOSUS GG 1 CAP CAPSULE PO SCH ×2 (09:35→20:59)
[2016-10-13] MEDS: LamoTRIgine 100 MG TABLET PO SCH ×2 (09:35→20:58)
[2016-10-13] MEDS: BENZONATATE 100 MG CAPSULE (TESSALON) PO SCH ×3 (09:35→21:43)
[2016-10-13] MEDS: ONDANSETRON HCL 4 MG/2 ML VIAL IVP PRN ×2 (09:36→15:46)
[2016-10-13] MEDS: DOCUSATE SODIUM 100 MG CAPSULE PO SCH ×2 (09:37→20:58)
[2016-10-13 12:51] VITALS: BP_SYST 146
[2016-10-13 16:04] VITALS: BP_SYST 161
[2016-10-13 20:49] VITALS: BP_SYST 149
[2016-10-13] MEDS: QUEtiapine FUMARATE 100 MG TABLET PO SCH (21:00)
[2016-10-13 23:48] VITALS: BP_SYST 117
[2016-10-14] MEDS: IPRATROPIUM/ALBUTEROL SULFATE 3 ML AMPUL.NEB INH SCH ×2 (02:20→07:28)
[2016-10-14] MEDS: MORPHINE 2 MG/ML INJ. SYRINGE IVP PRN (02:51)
[2016-10-14 04:21] VITALS: BP_SYST 125
[2016-10-14] MEDS: LEVOTHYROXINE SODIUM 0.05 MG TABLET PO SCH (06:04)
[2016-10-14] MEDS: LORazepam 2 MG/ML VIAL IVP PRN (06:05)
[2016-10-14 07:02] LABS: CREATININE 0.74 mg/dL (0.55-1.30); POTASSIUM 4.2 mmol/L (3.5-5.1)
[2016-10-14 07:08] LABS: CALCIUM 8.9 mg/dL (8.4-11.0)
[2016-10-14 07:27] LABS: BASOPHILS % (AUTO) 0.2 % (0.0-2.0); EOSINOPHILS # (AUTO) 0.2 K/uL (0.0-0.4); EOSINOPHILS % (AUTO) 1.5 % (0.0-4.0); HEMATOCRIT 43.3 % (36-48); HEMOGLOBIN 14.1 g/dL (12.0-16.0); LYMPHOCYTES # (AUTO) 1.3 K/uL (1.0-5.5); LYMPHOCYTES % (AUTO) 12.2 % (20.5-51.5); MEAN CORPUSCULAR HEMOGLOBIN 32 pg (27-31); MEAN CORPUSCULAR HGB CONC 33 % (32-36); MEAN CORPUSCULAR VOLUME 98 fL (79.0-98.0); MONOCYTES # (AUTO) 0.8 K/uL (0.0-1.0); MONOCYTES % (AUTO) 7.3 % (1.7-9.3); NEUTROPHILS # (AUTO) 8.6 K/uL (1.8-7.7); NEUTROPHILS % (AUTO) 78.8 % (40.0-70.0); PLATELET COUNT (AUTO) 164 K/uL (130-430); RED BLOOD CELL COUNT(AUTO) 4.42 MIL/uL (4.2-6.2); RED CELL DISTRIBUTION WIDTH 13.8 % (9.0-15.0); WHITE BLOOD COUNT (AUTO) 10.9 K/uL (4.8-10.8)
[2016-10-14] MEDS: BUDESONIDE 0.5 MG/2 ML AMPUL.NEB INH SCH (07:29)
[2016-10-14 08:00] VITALS: BP_SYST 127
[2016-10-14] MEDS: LACTOBACILLUS RHAMNOSUS GG 1 CAP CAPSULE PO SCH (08:33)
[2016-10-14] MEDS: CITALOPRAM HYDROBROMIDE 20 MG TABLET PO SCH (08:33)
[2016-10-14] MEDS: busPIRone HCL 5 MG TABLET PO SCH (08:33)
[2016-10-14] MEDS: guaiFENesin ER 600 MG TAB PO SCH (08:33)
[2016-10-14] MEDS: PREDNISONE 10 MG TABLET PO SCH (08:33)
[2016-10-14] MEDS: DOCUSATE SODIUM 100 MG CAPSULE PO SCH (08:33)
[2016-10-14] MEDS: HYDROCHLOROTHIAZIDE 12.5 MG CAPSULE (HCTZ) PO SCH (08:34)
[2016-10-14] MEDS: CARVEDILOL 3.125 MG TABLET (COREG) PO SCH (08:34)
[2016-10-14] MEDS: VALSARTAN 80 MG TABLET (DIOVAN) PO SCH (08:35)
[2016-10-14] MEDS: LamoTRIgine 100 MG TABLET PO SCH (08:35)
[2016-10-14] MEDS: ASPIRIN 81 MG TAB.CHEW PO SCH (08:36)
[2016-10-14] MEDS: BENZONATATE 100 MG CAPSULE (TESSALON) PO SCH (08:38)
[2016-10-14 09:23] VITALS: BP_SYST 127
== END 2016-10-14 11:10 | DRG 189 ==
LOC: SED 12:05 → SMU 14:09 → STU 14:19 → SMU 10-03 14:49
PROVIDERS: ADMIT Family Medicine; ATTEND Family Medicine
DX: J96.01 Acute respiratory failure with hypoxia (principal); J44.1 Chronic obstructive pulmonary disease with (acute) exacerbation; F33.2 Major depressive disorder, recurrent severe without psychotic features; J44.0 Chronic obstructive pulmonary disease with (acute) lower respiratory infection; J20.9 Acute bronchitis, unspecified; G89.4 Chronic pain syndrome; G40.909 Epilepsy, unspecified, not intractable, without status epilepticus; E78.00 Pure hypercholesterolemia, unspecified; F10.21 Alcohol dependence, in remission; I11.9 Hypertensive heart disease without heart failure; F41.1 Generalized anxiety disorder; R26.81 Unsteadiness on feet; M62.81 Muscle weakness (generalized); F17.210 Nicotine dependence, cigarettes, uncomplicated; E78.5 Hyperlipidemia, unspecified; E03.9 Hypothyroidism, unspecified; D69.6 Thrombocytopenia, unspecified; M25.562 Pain in left knee; S83.207A Unspecified tear of unspecified meniscus, current injury, left knee, initial encounter; X58.XXXA Exposure to other specified factors, initial encounter; Y93.89 Activity, other specified; Y92.89 Other specified places as the place of occurrence of the external cause; Y99.8 Other external cause status; Z88.1 Allergy status to other antibiotic agents; Z88.5 Allergy status to narcotic agent; Z79.899 Other long term (current) drug therapy; Z79.82 Long term (current) use of aspirin; Z86.73 Personal history of transient ischemic attack (TIA), and cerebral infarction without residual deficits
CPT/HCPCS: 36415; 36600; 71010; 80048; 80053; 80061; 81000-TC; 82150-TC; 82803-TC; 83036; 83605; 83690-TC; 83735-TC; 83880; 84100-TC; 84436; 84439; 84443-TC; 84479; 84484; 85025; 87081; 87086; 93005; 94640; 94760; 97110-GP; 97116-GP; 97530-GP; 99285; J1650; J1956; J2060; J2270; J2405; J2930; J7030; J7050; J7512